=== PATIENT | male | born 1940 | race Caucasian/White ===

== ENCOUNTER 2019-12-12 12:04 | Day surgery (SDC) | payer MEDICARE ==
[~2019-12-12] VITALS: Ht 180.3 cm; Wt 95.3 kg
[~2019-12-12 12:04] MED LIST: ASCO500 PO; ASPI81CH PO; Aspir 8181 MG PO; BILBERRY PO; Cinnamon500 MG PO; DOCU100 PO; FISH OIL 1,001000 MG PO; FISH OIL 1,2001 EAC7 PO; FOLI400 PO; FURO20 PO; Fruity C250 MG PO; GLIM2 PO; GLUCOPHAGE1000 M1 PO; HORSE CHESTNUT PO; HYDACE10B PO; Indapamide2.5 MG; LISI20 PO; LISINOPRIL-HCT1 EACH PO; LUTEIN6 MG PO; MAGNESIUM OXID500 MG PO; MAGNESIUM400 MG PO; MAGOXI400 PO; MECL25 PO; METCAR500 PO; METF500 PO; Natrol Alpha 3300 MG; OMEP20ER PO; OMEPRAZOLE MAGN20 MG PO; PRAV20 PO; SENN187 PO; TOCO400 PO; TUMERIC PO; TURMERIC500 MG PO; UBID100 PO; WARF4 PO; XARELTO20 MG PO; ZESTORETIC 20-1 EACH PO; [UNRECOGNIZED DRUG - OTHER] PO
--- NOTE | 2019-12-12 13:31 | NUR ---
12/12/19 1331 Priscilla Brooks V 1 20G IV PLACED IN R HAND FOR A BEIR BLOCK, 1 FAILED 18G IV IN L HAND, 1 FAILED 18G IV IN R FOREARM, 18G IV PLACED IN R FOREARM. PT TOW.
--- NOTE | 2019-12-12 14:03 | NUR ---
12/12/19 1403 Mathieu Sanchez BLOCKED COMPLETED IN OR PRIOR TO SX START BY DR. RING.
--- NOTE | 2019-12-12 15:19 | NUR ---
12/12/19 1519 NARENDRA DOOLEY PATIENT TO STEP DOWN UNIT. VSS. PATIENTS AT BEDSIDE. PT TRANSFER TO CHAIR. TOLERATING SIPS OF CLEARS AND PO INTAKE. DENIES PAIN/NAUSEA IV DC'D. ENGAGED IN DC TEACHING. ALL QUESTIONS ASKED AND ANSWERED
== END 2019-12-12 15:15 | disposition home or self-care (01) ==
LOC: ORSCSDS 12:04
PROVIDERS: Orthopaedic Surgery
PROC: 01N50ZZ Release Median Nerve, Open Approach (ICD-10-PCS; principal; 2019-12-12 13:45)
DX: G56.01 Carpal tunnel syndrome, right upper limb (principal); E11.9 Type 2 diabetes mellitus without complications; I10 Essential (primary) hypertension; I48.0 Paroxysmal atrial fibrillation; J44.9 Chronic obstructive pulmonary disease, unspecified; Z87.891 Personal history of nicotine dependence; E78.00 Pure hypercholesterolemia, unspecified; K21.9 Gastro-esophageal reflux disease without esophagitis; Z79.899 Other long term (current) drug therapy; Z79.84 Long term (current) use of oral hypoglycemic drugs
CPT/HCPCS: 82947; J0690; J1885; J2250; J2370; J2710; J3010

== ENCOUNTER 2020-06-15 12:13 | Day surgery (SDC) | payer MEDICARE ==
[~2020-06-15] VITALS: Ht 177.8 cm; Wt 103.0 kg
--- NOTE | 2020-06-15 14:12 | NUR ---
PT TOLERATES PROCEDURE WELL WITH NO DIFFICULTIES. DRESSING ON LEFT CHEST C/D/I. VSS. PT VERBALIZED UNDERSTANDING OF D/C INSTRUCTIONS. PAPERWORK PROVIDED. PRESENT. NO ACUTE DISTRESS NOTED.
== END 2020-06-15 23:08 | disposition home or self-care (01) ==
LOC: MHTC 12:13
DX: Z45.09 Encounter for adjustment and management of other cardiac device (principal); I48.92 Unspecified atrial flutter; I48.91 Unspecified atrial fibrillation; I11.9 Hypertensive heart disease without heart failure; G47.33 Obstructive sleep apnea (adult) (pediatric); E11.9 Type 2 diabetes mellitus without complications; E66.9 Obesity, unspecified; D50.9 Iron deficiency anemia, unspecified; R42 Dizziness and giddiness; Z96.653 Presence of artificial knee joint, bilateral; Z68.34 Body mass index [BMI] 34.0-34.9, adult; Z79.82 Long term (current) use of aspirin; Z79.84 Long term (current) use of oral hypoglycemic drugs
CPT/HCPCS: 33286; J0690; J7050

== ENCOUNTER 2024-02-02 11:54 | Day surgery (SDC) | payer MEDICARE ==
[~2024-02-02] VITALS: Ht 177.8 cm; Wt 85.7 kg
[~2024-02-02 11:54] MED LIST changes: +Balanced Salt Epinephrine Irrigation Solution 500 mL IR SCH; +Lidocaine HCl/Pf 1% 5 ML VIAL XX SCH; +Moxifloxacin HCL 0.5 MG/0.1 ML 0.4MLSYR LEFTEYE SCH; +PHENYLEPHRINE\\TROPICAMIDE\\TETRACAINE OPHTHALMIC DILATING SOLN LEFTEYE PRN; +Povidone-Iodine 450 DROP/30 ML Solution LEFTEYE SCH
[2024-02-02] MEDS ORDERED: NS 500 ML IV ONE (12:10)
[2024-02-02] MEDS ORDERED: MECL25 PO (12:16)
[2024-02-02] MEDS ORDERED: ALFU10 PO (12:16)
[2024-02-02] MEDS ORDERED: Tetracaine HCl 0.5% Opth Soln 15 ml XX ONE (13:14)
[2024-02-02 13:41] VITALS: BP 116/65
== END 2024-02-02 13:52 | disposition home or self-care (01) ==
LOC: ORSCSDS 11:54
PROVIDERS: Student in an Organized Health Care Education/Training Program
PROC: 08RK3JZ Replacement of Left Lens with Synthetic Substitute, Percutaneous Approach (ICD-10-PCS; principal; 2024-02-02 13:30)
DX: E11.36 Type 2 diabetes mellitus with diabetic cataract (principal); H25.813 Combined forms of age-related cataract, bilateral; G47.33 Obstructive sleep apnea (adult) (pediatric); I10 Essential (primary) hypertension; K21.9 Gastro-esophageal reflux disease without esophagitis; Z87.891 Personal history of nicotine dependence; Z79.82 Long term (current) use of aspirin; Z79.84 Long term (current) use of oral hypoglycemic drugs; Z79.899 Other long term (current) drug therapy
CPT/HCPCS: 82947; V2632

== ENCOUNTER 2024-02-09 10:52 | Day surgery (SDC) | payer MEDICARE ==
[~2024-02-09] VITALS: Ht 177.8 cm; Wt 84.3 kg
[~2024-02-09 10:52] MED LIST changes: +ALFU10 PO; -Moxifloxacin HCL 0.5 MG/0.1 ML 0.4MLSYR LEFTEYE SCH; +Moxifloxacin HCL 0.5 MG/0.1 ML 0.4MLSYR RIGHTEYE SCH; -PHENYLEPHRINE\\TROPICAMIDE\\TETRACAINE OPHTHALMIC DILATING SOLN LEFTEYE PRN; +PHENYLEPHRINE\\TROPICAMIDE\\TETRACAINE OPHTHALMIC DILATING SOLN RIGHTEYE PRN; -Povidone-Iodine 450 DROP/30 ML Solution LEFTEYE SCH; +Povidone-Iodine 450 DROP/30 ML Solution ONE; +Povidone-Iodine 450 DROP/30 ML Solution RIGHTEYE SCH; +Tetracaine HCl/Pf 0.5% Opth Soln 4 ml ONE
--- NOTE | 2024-02-09 11:21 | NUR ---
02/09/24 1121 Myriam Andrew TETRAZEVINE: [id number] JOHN: [id number]
[2024-02-09] MEDS ORDERED: Tetracaine HCl 0.5% Opth Soln 15 ml RIGHTEYE ONE (11:41)
--- NOTE | 2024-02-09 12:34 | NUR ---
02/09/24 1234 Glynn Barron PT MONITORS B/P AT HOME AND STATES RECORDED SDU B/P CLOSER TO BASELINE THAN PRE-OP, WITHIN 20%. HE DENIED DIZZINESS, NAUSEA, CP, PAIN OR SOB. PT INSTRUCTED TO CONTINUE MONITORING B/P AT HOME, AND FOLLOW UP WITH PCP NEEDED.
[2024-02-09 12:35] VITALS: BP 112/64
== END 2024-02-09 12:14 | disposition home or self-care (01) ==
LOC: ORSCSDS 10:52
PROVIDERS: Student in an Organized Health Care Education/Training Program
PROC: 08RJ3JZ Replacement of Right Lens with Synthetic Substitute, Percutaneous Approach (ICD-10-PCS; principal; 2024-02-09 12:30)
DX: E11.36 Type 2 diabetes mellitus with diabetic cataract (principal); H25.811 Combined forms of age-related cataract, right eye; Z96.1 Presence of intraocular lens; I10 Essential (primary) hypertension; I48.92 Unspecified atrial flutter; G47.33 Obstructive sleep apnea (adult) (pediatric); Z79.82 Long term (current) use of aspirin; Z87.891 Personal history of nicotine dependence; E66.9 Obesity, unspecified; Z79.84 Long term (current) use of oral hypoglycemic drugs; Z79.899 Other long term (current) drug therapy
CPT/HCPCS: 82947; V2632